=== PATIENT | female | born 1990 | race African-American/Black ===

== ENCOUNTER 2018-01-01 09:17 | Emergency (ER) | payer OTHER ==
[~2018-01-01] VITALS: Ht 157.5 cm; Wt 47.6 kg
[2018-01-01 10:03] LABS: APPEARANCE,URINE CLEAR; BASOPHILS % (AUTO) 1.4 % (0.0-2.0); BILIRUBIN, URINE NEGATIVE (NEGATIVE); EOSINOPHILS % (AUTO) 0.7 % (0.0-3.0); GLUCOSE, URINE (UA) NEGATIVE (NEGATIVE); HEMATOCRIT 36.3 % (37.0-47.0); HEMOGLOBIN 11.1 G/DL (12.0-16.0); KETONES,URINE 1+ (NEGATIVE); LEUKOCYTE ESTERASE ,URINE 1+ (NEGATIVE); LYMPHOCYTES % (AUTO) 11.8 % (20.0-45.0); MEAN CORPUSCULAR VOLUME 73 FL (80-99); MONOCYTES % (AUTO) 6.9 % (1.0-10.0); NEUTROPHILS % (AUTO) 79.1 % (45.0-75.0); NITRITE,URINE NEGATIVE (NEGATIVE); PH,URINE 5 (4.5-8.0); PLATELET COUNT 308 K/UL (150-450); PROTEIN,URINE 1+ (NEGATIVE); UROBILINOGEN,URINE 1 MG/DL (0.0-1.0); WHITE BLOOD COUNT 12.5 K/UL (4.8-10.8)
[2018-01-01 10:11] LABS: COLOR,URINE YELLOW
[2018-01-01 10:12] LABS: ANION GAP 9 mmol/L (5-15); BLOOD UREA NITROGEN 15 mg/dL (7-18); CALCIUM 9.5 MG/DL (8.5-10.1); CARBON DIOXIDE 25 MMOL/L (21-32); CHLORIDE 104 MMOL/L (98-107); CREATININE 0.7 MG/DL (0.55-1.30); POTASSIUM 3.7 MMOL/L (3.5-5.1); SODIUM 138 MMOL/L (136-145)
[2018-01-01 10:17] LABS: ALANINE AMINOTRANSFERASE 16 U/L (12-78); ALBUMIN 4.1 G/DL (3.4-5.0); ALBUMIN/GLOBULIN RATIO 0.9 (1.0-2.7); ALKALINE PHOSPHATASE 63 U/L (46-116); ASPARTATE AMINO TRANSFERASE 17 U/L (15-37); BILIRUBIN,TOTAL 0.4 MG/DL (0.2-1.0); CREATINE KINASE 75 U/L (26-308)
[2018-01-01] MEDS ORDERED: Ketorolac 30mg Inj IM ONE (11:30)
[2018-01-01] MEDS ORDERED: Methocarbamol 500mg tab ORAL ONE (11:30)
--- NOTE | 2018-01-01 11:35 | Emergency Room Report ---
History of Present Illness General Chief Complaint: Lower Extremity Injury Source: Patient (Binh Cuellar) Present Illness HPI 27-year-old female patient presents ER brought in by ambulance complaining of pain in numbness in bilateral lower extremities. Reports pain and numbness begins in her bilateral ankles and spread suppressor legs. Reports that she has had similar symptoms in the past. Reports this time and is worse and she was unable to walk. Also reports back pain during this time. Reports pain in her ankles travels up to her back. Denies bowel or bladder incontinence. Denies dysuria, hematuria. Denies recent injury or trauma. Reports history of "turned in" ankles that have caused her problems in the past. Denies fever, chest pain, shortness of breath. Reports history of anemia. Denies recent period of immobilization. Denies calf pain. Denies fever, chest pain, SOB. Denies recent illness. (Binh Cuellar) Allergies: Coded Allergies: No Known Allergies (Unverified , 01/01/18) Patient History Past Medical History: see triage record Last Menstrual Period: last month Now: No Reviewed Nursing Documentation: PMH: Agreed; PSxH: Agreed (Binh Cuellar) Nursing Documentation-PMH Past Medical History: No Stated History (Binh Cuellar) Review of Systems All Other Systems: negative except mentioned in HPI (Binh Cuellar) Physical Exam Vital Signs Date Time Temp Pulse Resp B/P (MAP) Pulse Ox O2 Delivery O2 Flow Rate FiO2 01/01/18 09:11 97.7 97 18 105/68 97 Room Air 97.7 Sp02 EP Interpretation: reviewed, normal General Appearance: well appearing, no apparent distress, alert, GCS 15, non- toxic Head: normocephalic, atraumatic Eyes: bilateral eye normal inspection, bilateral eye PERRL ENT: hearing grossly normal, normal pharynx, no angioedema, normal voice, uvula midline, moist mucus membranes Neck: full range of motion Respiratory: lungs clear, normal breath sounds, no rhonchi, no respiratory distress, no accessory muscle use, no wheezing, speaking full sentences Cardiovascular #1: regular rate, rhythm, no edema Cardiovascular #2: 2+ dorsalis pedis (R), 2+ dorsalis pedis (L) Gastrointestinal: non tender, soft, no mass, non-distended, no guarding, no rebound Musculoskeletal: back normal, digits/nails normal, gait/station normal, normal range of motion, non-tender, no calf tenderness, Sim's Sign negative, other - NVI, sensation intact to light touch Neurologic: alert, oriented x3, responsive, motor strength/tone normal, sensory intact Psychiatric: mood/affect normal Reflexes: 2+ knee (R), 2+ knee (L) Skin: no rash (Binh Cuellar) Medical Decision Making PA Attestation Dr. Anne is my supervising Physician whom patient management has been discussed with. (Binh Cuellar) Diagnostic Impression: Primary Impression: Chronic pain Additional Impression: Leg pain ER Course Pt. presents to the ED c/o bilateral ankle numbness and pain. Ddx considered but are not limited to [ ] Vital signs: are WNL, pt. is afebrile ER COURSE: - Please note that this Emergency Department Report was dictated using [employer] Photonicsmaterial checker technology software, occasionally this can lead to erroneous entry secondary to interpretation by the dictation equipment. 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 She has had social in housing issues recently and is staying in a hotel. She states that she did a lot of walking and developed pain related to her known history of pain in her ankles and feet related to this previous deformity. She has been seen by orthopedic surgeons. She had planned on getting surgical fixation and reconstruction but has not followed up appropriately as planned. She was seen by the social work associate for options for her housing situation. The patient underwent a full evaluation to include labs and an MRI of her lumbar spine. There are no acute findings. The symptoms appear to be chronic and nonacute. Laboratory Tests Test 01/01/18 09:50 White Blood Count 12.5 K/UL (4.8-10.8) H Red Blood Count 5.00 M/UL (4.20-5.40) Hemoglobin 11.1 G/DL (12.0-16.0) L Hematocrit 36.3 % (37.0-47.0) L Mean Corpuscular Volume 73 FL (80-99) L Mean Corpuscular Hemoglobin 22.1 PG (27.0-31.0) L Mean Corpuscular Hemoglobin Concent 30.5 G/DL (32.0-36.0) L Red Cell Distribution Width 15.0 % (11.6-14.8) H Platelet Count 308 K/UL (150-450) Mean Platelet Volume 6.3 FL (6.5-10.1) L Neutrophils (%) (Auto) 79.1 % (45.0-75.0) H Lymphocytes (%) (Auto) 11.8 % (20.0-45.0) L Monocytes (%) (Auto) 6.9 % (1.0-10.0) Eosinophils (%) (Auto) 0.7 % (0.0-3.0) Basophils (%) (Auto) 1.4 % (0.0-2.0) Urine Color Yellow Urine Appearance Clear Urine pH 5 (4.5-8.0) Urine Specific Fischer 1.025 (1.005-1.035) Urine Protein 1+ (NEGATIVE) H Urine Glucose (UA) Negative (NEGATIVE) Urine Ketones 1+ (NEGATIVE) H Urine Blood 2+ (NEGATIVE) H Urine Nitrite Negative (NEGATIVE) Urine Bilirubin Negative (NEGATIVE) Urine Urobilinogen 1 MG/DL (0.0-1.0) H Urine Leukocyte Esterase 1+ (NEGATIVE) H Urine RBC 2-4 /HPF (0 - 2) H Urine WBC 2-4 /HPF (0 - 2) Urine Squamous Epithelial Cells Few /LPF (NONE/OCC) Urine Bacteria Occasional /HPF (NONE) Urine Mucus Many /LPF (NONE/OCC) H Urine HCG, Qualitative Negative (NEGATIVE) Sodium Level 138 MMOL/L (136-145) Potassium Level 3.7 MMOL/L (3.5-5.1) Chloride Level 104 MMOL/L (98-107) Carbon Dioxide Level 25 MMOL/L (21-32) Anion Gap 9 mmol/L (5-15) Blood Urea Nitrogen 15 mg/dL (7-18) Creatinine 0.7 MG/DL (0.55-1.30) Estimate Glomerular Filtration Rate > 60 mL/min (>60) Glucose Level 94 MG/DL (74-106) Calcium Level 9.5 MG/DL (8.5-10.1) Total Bilirubin 0.4 MG/DL (0.2-1.0) Aspartate Amino Transferase (AST) 17 U/L (15-37) Alanine Aminotransferase (ALT) 16 U/L (12-78) Alkaline Phosphatase 63 U/L (46-116) Total Creatine Kinase 75 U/L (26-308) Total Protein 8.9 G/DL (6.4-8.2) H Albumin 4.1 G/DL (3.4-5.0) Globulin 4.8 g/dL Albumin/Globulin Ratio 0.9 (1.0-2.7) L Urine Opiates Screen Negative (NEGATIVE) Urine Barbiturates Screen Negative (NEGATIVE) Phencyclidine (PCP) Screen Negative (NEGATIVE) Urine Amphetamines Screen Negative (NEGATIVE) Urine Benzodiazepines Screen Negative (NEGATIVE) Urine Cocaine Screen Negative (NEGATIVE) Urine Marijuana (THC) Screen Negative (NEGATIVE) (Shawna Anne DO) Last Vital Signs Date Time Temp Pulse Resp B/P (MAP) Pulse Ox O2 Delivery O2 Flow Rate FiO2 01/01/18 09:11 97.7 97 18 105/68 97 Room Air 97.7 (Binh Cuellar) Status: improved (Shawna Anne DO) Disposition: HOME, SELF-CARE Condition: Improved Binh Cuellar Jan 01, 2018 11:35 Shawna Anne DO Jan 01, 2018 15:52
[2018-01-01] MEDS ORDERED: Gadavist 7.5mMol/7.5ml vial IV PRN (11:45)
--- NOTE | 2018-01-01 12:32 | Diagnostic Imaging Report ---
Indication: Ankle pain Technique: 3 views of the right ankle Comparison: none Findings: No acute fractures. No dislocations. Joint spaces are preserved. Normal mineralization. No radiopaque foreign body. Impression: Negative
--- NOTE | 2018-01-01 12:32 | Diagnostic Imaging Report ---
Indication: Ankle pain Technique: 3 views of the left ankle Comparison: none Findings: No acute fractures. No dislocations. The joint spaces are preserved Impression: Negative
--- NOTE | 2018-01-01 12:33 | Diagnostic Imaging Report ---
Indication: Lower back pain Technique: 3 views of the lumbar spine Comparison: None Findings: Bony alignment is normal. Vertebral body heights are preserved. Disc spaces are preserved. Pedicles are intact. Sacral arches are preserved. Sacral iliac joint spaces are preserved Impression: Negative
[2018-01-01 15:04] VITALS: BP 109/72
--- NOTE | 2018-01-01 15:17 | Diagnostic Imaging Report ---
Indication: Reason For Exam: WEAK Technique: Sagittal T1 fast spin echo, sagittal T2 FRFSE, sagittal STIR, axial T1, axial T2 FRFSE, axial T2 disc cut, pre and postcontrast axial and sagittal T1 fat saturated images obtained of the lumbar spine Comparison: Plain radiographs taken earlier the same day Findings: The conus medullaris terminates at the L1-2 level. The vertebral body heights are preserved. The vertebral body marrow signal is normal. The bony alignment is normal. The disc spaces are preserved. There is normal disc signal. Visualized portions of the distal cord demonstrated normal cord signal. No significant disc bulge or protrusion. No spinal stenosis. No neural foraminal narrowing. No abnormal contrast enhancement or other findings to suggest epidural abscess demonstrated. Included extra spinal soft tissues are unremarkable. Impression: Negative. No evidence of acute abnormality, neural impingement, epidural abscess or other inflammation.
[2018-01-01] MEDS ORDERED: CYCLOBENZAPRINE10 MG ORAL (15:55)
[2018-01-01] MEDS ORDERED: TRAMADOL HCL50 MG ORAL (15:55)
[2018-01-01 17:18] VITALS: BP 109/71
[2018-01-02] MEDS ORDERED: ROBAXIN500 MG PO (12:12)
[2018-01-02] MEDS ORDERED: TYLENOL EXTRA500 MG ORAL (12:12)
== END 2018-01-01 17:18 | disposition home or self-care (01) ==
LOC: EDBD 09:17 → EMR 12:37
DX: G89.29 Other chronic pain (principal); M79.662 Pain in left lower leg; M79.661 Pain in right lower leg; R20.0 Anesthesia of skin
CPT/HCPCS: 36415; 72020; 72158; 73610; 80053; 80307; 81003; 81025; 82550; 85025; 99284; A9585; J1885

== ENCOUNTER 2018-01-02 11:16 | Emergency (ER) | payer MEDICARE, OTHER ==
[~2018-01-02] VITALS: Ht 157.5 cm; Wt 47.6 kg
[~2018-01-02 11:16] MED LIST: CYCLOBENZAPRINE10 MG ORAL; TRAMADOL HCL50 MG ORAL
[2018-01-02 11:29] VITALS: BP 110/64
[2018-01-02] MEDS ORDERED: TYLENOL EXTRA500 MG ORAL (12:12)
[2018-01-02] MEDS ORDERED: ROBAXIN500 MG PO (12:12)
--- NOTE | 2018-01-02 12:12 | Emergency Room Report ---
History of Present Illness General Chief Complaint: Pain Source: Patient Present Illness HPI 27-year-old female patient presents to ER complaining of left-sided inguinal pain. Reports pain is been present for her a while, intermittent. Reports she "I think im having a muscle spasm thats hitting a nerve". Patient was seen in ER yesterday with similar symptoms, discharged home with chronic pain. Patient reports that she was walking around earlier today when she began to experience pain on the left side. Reports no abdominal pain, denies bowel or bladder problems. Denies difficulty with passing stool. Denies fever, chest pain, shortness of breath. denies recent injury or trauma. Allergies: Coded Allergies: No Known Allergies (Unverified , 01/01/18) Patient History Past Medical History: see triage record Now: No Reviewed Nursing Documentation: PMH: Agreed; PSxH: Agreed Nursing Documentation-PMH Past Medical History: No History, Except For History Of Psychiatric Problem: Yes - ADD Review of Systems All Other Systems: negative except mentioned in HPI Physical Exam Vital Signs Date Time Temp Pulse Resp B/P (MAP) Pulse Ox O2 Delivery O2 Flow Rate FiO2 01/02/18 11:23 98.4 110 20 110/64 95 Room Air 98.4 Sp02 EP Interpretation: reviewed, normal General Appearance: well appearing, no apparent distress, alert, GCS 15, non- toxic Head: normocephalic, atraumatic Eyes: bilateral eye normal inspection, bilateral eye PERRL ENT: hearing grossly normal, normal pharynx, no angioedema, normal voice, uvula midline, moist mucus membranes Neck: full range of motion Respiratory: lungs clear, normal breath sounds, no rhonchi, no respiratory distress, no accessory muscle use, no wheezing, speaking full sentences Cardiovascular #1: regular rate, rhythm, no edema Gastrointestinal: non tender, soft, no mass, non-distended, no guarding, no rebound, other - no hernia Genitourinary: no CVA tenderness Musculoskeletal: back normal, digits/nails normal, gait/station normal, normal range of motion, non-tender, other - no leg length discrepancy Neurologic: alert, oriented x3, responsive, motor strength/tone normal, sensory intact Psychiatric: mood/affect normal Medical Decision Making PA Attestation Dr. Anne is my supervising Physician whom patient management has been discussed with. Diagnostic Impression: Primary Impression: Muscle spasm ER Course Pt. presents to the ED c/o associated inguinal pain. Ddx considered but are not limited to fracture, sprain, strain, contusion, dislocation. No erythema, no warmth to touch, no fever, nontoxic appearing, low suspicion for septic joint. Vital signs: are WNL, pt. is afebrile Ordered muscle relaxant and pain medication. ER COURSE Provided with pain medication. patient denies new or acute injury, does not require repeat imaging at this time , had multiple images performed yesterday an extensive workup, imaging and workup at that time was negative, likely chronic pain and muscle spasm. Patient is to follow-up with PCP, contact insurance to establish care with primary care provider. 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 patient states that yesterday she was supposed to see social worker aide however was unable to, requesting to see social worker aide again. Patient seen by and spoke with social worker aide. Patient reports she is okay to be discharged at this time. patient states that she called primary care doctor's office and has an appointment scheduled for next week, will discuss referral to physical therapy and other referrals at that time. Patient instructed on RICE method: rest, ice, compression, elevation. Patient instructed on rest, ice and heat. Patient instructed to beWBAT Contact information for orthopedic urgent care provided, follow-up with urgent care if unable to followup with primary care provider and get referral to shredding specialist. Followup with primary care provider. Discuss referral to ortho/pain management/ PT as needed. Discuss further imaging with MRI/CT as needed. DISCHARGE: -Rx provided for Tylenol for pain symptoms. -Rx provided for Methocarbamol. SE drowsiness, do not drink, drive, or operate heavy machinery while using. At this time pt. is stable for d/c to home. Patient is resting comfortably, in no acute distress, nontoxic appearing, talking without difficulty. Will provide printed patient care instructions, and any necessary prescriptions. Patient instructed to follow with primary care provider in 3 - 5 days and to request further follow-up as needed. Care plan and follow up instructions have been discussed with the patient prior to discharge. Take medications as directed. Patient questions asked and answered. Patient reports understanding and agreement to treatment plan. ER precautions given, patient instructed to return to ER immediately for any new or worsening of symptoms. - Please note that this Emergency Department Report was dictated using Dragon epic specialist technology software, occasionally this can lead to erroneous entry secondary to interpretation by the dictation equipment. Last Vital Signs Date Time Temp Pulse Resp B/P (MAP) Pulse Ox O2 Delivery O2 Flow Rate FiO2 01/02/18 11:29 98.4 20 110/64 95 Room Air 98.4 01/02/18 11:23 110 Disposition: HOME, SELF-CARE Condition: Stable Scripts Acetaminophen* (TYLENOL EXTRA STRENGTH*) 500 Mg Tablet 500 MG ORAL Q8H PRN for Prn Headache/Temp > 101, #30 TAB 0 Refills Prov: Binh Cuellar 01/02/18 Methocarbamol* (ROBAXIN*) 500 Mg Tablet 500 MG PO TID, #21 TAB 0 Refills Prov: Binh Cuellar 01/02/18 Patient Instructions: Muscle Cramps and Spasms, [id number], Muscle Strain, [id number] Additional Instructions: Patient instructed to follow up with primary care provider and discuss further referral to orthopedics/physical therapy/pain management as needed. Call insurance to establish care with a provider. If unable to followup with PCP, followup with orthopedic urgent care in 5-7 days , call to schedule appointment. Patient instructed on RICE method: rest, ice, compression, elevation. Alternate ice and heat to affected muscle. Patient instructed to WBAT. Take medications as directed. Patient questions asked and answered. ER precautions given, patient instructed to return to ER immediately for any new or worsening of symptoms. [facility] [id number] [facility] [address] [facility], [id number] [email or web address] Binh Cuellar Jan 02, 2018 12:12
[2018-01-02] MEDS ORDERED: Ketorolac 30mg Inj IM ONE (12:15)
[2018-01-02] MEDS ORDERED: Methocarbamol 500mg tab ORAL ONE (12:15)
[2018-01-02 13:50] VITALS: BP 117/77
== END 2018-01-02 13:50 | disposition home or self-care (01) ==
LOC: EMR 12:20
DX: M62.838 Other muscle spasm (principal); R10.32 Left lower quadrant pain; F98.8 Other specified behavioral and emotional disorders with onset usually occurring in childhood and adolescence
CPT/HCPCS: 96372; 99283; J1885